=== PATIENT | male | born 1945 | race Caucasian/White ===

== ENCOUNTER 2019-10-07 14:34 | Outpatient (CLI) | payer OTHER, MEDICARE, BC, SELFPAY ==
--- NOTE | 2019-10-07 14:43 | MR_ITS ---
WS: [id number] MRI LEFT SHOULDER NONCONTRAST TECHNIQUE: Sagittal T2, coronal T1, T2 and proton density imaging. Axial gradient PDE imaging. CLINICAL INFORMATION: LEFT ROTATOR CUFF STRAIN COMPARISON: None. FINDINGS: Moderate hypertrophic changes at the AC joint. Mild downsloping of the acromion. Mild subacromial und ersurface spurring. Full-thickness tear involving the supraspinatus with retraction of the supraspina tus. Tendon retraction measures approximately 2.0 cm from the insertion. Infraspinatus is normal. Nor mal teres minor. Tendinopathy with small intrasubstance tear involving the subscapularis tendon distally. Normal bicep s tendon in the bicipital groove. Degenerative fraying of the glenoid labrum. Biceps labral anchor ap pears intact. Suggestion of tiny SLAP tear involving the anterior superior glenoid labrum. Inferior l abrum appears intact. No other significant findings. MR/MR shoulder LT wo con* [id number] IMPRESSION: 1. Full-thickness tear involving the supraspinatus with 2.0 cm of tendon retra ction. 2. Infraspinatus and teres minor appear intact. 3. Tendinopathy with partial intrasubstance tear involving the subscapularis d istally. 4. Normal biceps tendon in the bicipital groove. 5. Suggestion of a tiny SLAP tear. Biceps labral anchor appears intact 6. Small joint effusion.
== END 2019-10-07 14:35 | disposition home or self-care (01) ==
LOC: RADSHAW 14:40
PROVIDERS: Family Provider Family Medicine; PCP Family Medicine; Visit Provider Orthopaedic Surgery
DX: S46.012A Strain of muscle(s) and tendon(s) of the rotator cuff of left shoulder, initial encounter (principal); M75.122 Complete rotator cuff tear or rupture of left shoulder, not specified as traumatic; M25.412 Effusion, left shoulder; X58.XXXA Exposure to other specified factors, initial encounter
CPT/HCPCS: 73221

== ENCOUNTER 2019-11-24 06:14 | Day surgery (SDC) | payer OTHER, SELFPAY ==
[2019-11-23 12:29] VITALS: BMI 28.4
[2019-11-23 13:10] VITALS: BMI 29.9
[2019-11-24] VITALS (8 sets, daily range): BP systolic 134–148; BP diastolic 74–89; PULSE 61–85; RESP 13–21; TEMP 36.2–36.7; O2SAT 95–100
[2019-11-24] MEDS: sodium chloride 0.9% 1,000 ML 30 ML IV (06:03)
--- NOTE | 2019-11-24 06:10 | ANES.PREANE2 ---
Pre-Anesthetic Assessment Pre-Anesthetic Assessment: Height/Weight: Height 1.65 m Weight 81.647 kg Temp Pulse Resp BP Pulse Ox 97.3 F L 61 16 138/87 98 11/24/19 05:38 11/24/19 05:38 11/24/19 05:38 11/24/19 05:38 11/24/19 05:38 Preop Diagnosis: Left rotator cuff tear Proposed Procedure: Operation Date: 11/24/19 07:00 Proposed Procedures p Left Shoulder Arthroscopy w/ Rotator cuff Repair [id number]/M75.40/S46.012A(Left) - Stephan Bejarano MD s Rotator Cuff Repair Subcromial decompression(Left) - Stephan Bejarano MD Familial anesthetic complications: No trouble Was Beta Kev taken within 24 hours: Yes Last intake: Intake Last Liquid Date 11/24/19 Last Liquid Time 04:00 Last Solid Date 11/23/19 Last Solid Time 20:30 Social: Social History: Tobacco Comment: chews Exam: Pre-Anes Outpt Exam: alert, oriented x 3, clear to auscultation bilaterally and regular rate & rhythm Airway: Cervical ROM: WNL MP: 3 Dentition: False Pulmonary: Pulmonary: COPD Comments: had bad sinus infection and took steroids just this month with antibiotics CV/HEM: CV/HEM: HTN : : None reported Hepatic: Hepatic: None reported GI: GI: GERD Metabolic: Metabolic: None reported Musc/skel: Musc/skel: None reported Neuropsych: Neuropsych: None reported Anesthetic Plan: ASA status: 3 Anesthesia: General and Regional (specify below) Other: interscalene Risk of > 500 ml blood loss (7ml/kg in children): No Meds/Allergies Current Medications: Current Medications Generic Name Dose Route Start Last Admin Trade Name Freq PRN Reason Stop Dose Admin Sodium Chloride 1,000 mls @ 30 ml s/hr 11/24/19 05:30 11/24/19 06:03 Sodium Chloride 0.9% IV 11/25/19 05:29 30 mls/hr .Q24H JOANNA Administration Data Anesthesia Cardiac Studies: No Data to Display
[2019-11-24] MEDS: midazolam 1 mg/mL INJ 2 mL 2 MG IVP (06:30)
[2019-11-24 06:49] LABS: Basophils # 0.1 10^3/uL (0.0-0.1); Basophils % 0.8 %; Eosinophils # 0.2 10^3/uL (0.0-0.8); Eosinophils % 2.3 %; Hematocrit 45.6 % (42.0-52.0); Hemoglobin 15.2 g/dL (11.7-16.6); Lymphocytes % 40.7 %; Mean Corpuscular HGB Conc 33.3 g/dL (30.0-36.0); Mean Corpuscular Volume 92.9 fL (80-94); Mean Platelet Volume 10.4 fL (7.4-10.4); Monocytes # 0.9 10^3/uL (0.2-0.9); Monocytes % 12.1 %; Neutrophils # 3.2 10^3/uL (1.8-7.7); Neutrophils % 43.8 %; Nucleated Red Blood Cells % 0 %; Platelet Count 208 10^3/cmm (130-400); Red Blood Count 4.91 10^6/uL (4.1-5.3); Red Cell Distribution Width 11.7 % (12.1-15.1); White Blood Count 7.3 10^3/uL (4.0-10.0)
--- NOTE | 2019-11-24 06:55 | P.HP_ITS ---
Same Day Surgery H&P Indication for Procedure/HPI DATE OF PROCEDURE: November 24, 2019 CHIEF COMPLAINT/INDICATIONFOR SURGICAL PROCEDURE: Left rotator cuff tear after a fall 3 months ago at home. MRI has revealed a traumatic tear. Patient is scheduled for an arthroscopic right rotator cuff repair. He has been previously counseled and agrees to proceed PREOP DIAGNOSIS: Left rotator cuff tear PLANNED PROCEDRUE: Operation Date: 11/24/19 07:00 Proposed Procedures p Left Shoulder Arthroscopy w/ Rotator cuff Repair [id number]/M75.40/S46.012A(Left) - Stephan Bejarano MD s Rotator Cuff Repair Subcromial decompression(Left) - Stephan Bejarano MD Medications/Allergies* Home Medications Medication Instructions Recorded Confirmed Type metoprolol tartrate 25 mg tablet 25 mg PO BID 10/12/19 11/24/19 History pantoprazole 40 mg tablet,delayed 40 mg PO DAILY PRN 10/12/19 11/24/19 History release albuterol sulfate 1 puff INHALATION QID PRN 11/23/19 11/24/19 History budesonide-formoterol [Symbicort] 2 puff INHALATION BID 11/23/19 11/24/19 History calcium carbonate [Calcium 500] 500 mg PO BID 11/23/19 11/24/19 History flaxseed oil 1,000 mg PO BID 11/23/19 11/23/19 History ibuprofen [Advil] 200 mg PO Q6H PRN 11/23/19 11/24/19 History montelukast 10 mg PO QPM 11/23/19 11/24/19 History multivitamin 1 tab PO QAM 11/23/19 11/24/19 History omega 8-rpo-gcy-fish oil [Fish Oil] 1 cap PO DAILY 11/23/19 11/24/19 History Allergies/Adverse Reactions Allergy/AdvReac Type Severity Reaction Status Date / Time simvastatin Allergy Mild Unknown Verified 11/24/19 05:29 Sulfa (Sulfonamide Allergy Mild ADR-Itching Verified 11/24/19 05:29 Antibiotics) Current Medications: Generic Name Dose Route Start Last Admin Trade Name Freq PRN Reason Stop Dose Admin Sodium Chloride 1,000 mls @ 30 mls/hr 11/24/19 05:30 11/24/19 06:03 Sodium Chloride 0.9% IV 11/25/19 05:29 30 mls/hr .Q24H JOANNA Administration Pertinent Exam Findings alert, oriented x 3, clear to auscultation bilaterally and regular rate & rhythm Recommendations Surgery/Procedure today Coding Level of Care Code Acute Social Worker Palliative Care for Shireen Altamirano
--- NOTE | 2019-11-24 06:55 | ANES.PROC ---
Anesthesia Procedures Procedure/Date: 11/24/19 Nerve Block ^: Nerve Block 1: Main Anesthesia: general anesthesia Time Out Performed: Yes Consent: requested by attending/covering physician, from patient, risks and benefits reviewed and patient agrees to proceed Nerve block location: interscalene (L) Anesthesia monitors applied: pulse oximetry, EKG, BP cuff and oxygen Nerve block position: semi sitting Anesthetic Used: ropivicaine 0.5% (30 ml) and with decadron (4 mg) Ultrasound used to: recognize landmarks, visualize and ID brachial plexus and visualize and ID interscalene groove Nerve Stimulator Used?: No Interscalene/Femoral BLK: 2 stimuplex 22 g needle used for position and inplane approach Injection: neg aspiration of heme Patient Tolerated Procedure: well and no complications Complications: none Additional Comments: chloroprep of skin, time out performed
--- NOTE | 2019-11-24 08:50 | P.OP_ITS ---
Operative Report Date of procedure: November 24, 2019 Pre-op Diagnosis: Left rotator cuff tear Post-op diagnosis: same (Left rotator cuff tear, impingement left shoulder) Post-op Findings: The patient had a traumatic tear of the left rotator cuff beginning just posterior to the biceps tendon extending posteriorly approximately 2 cm with 2 cm of retraction. He had a large subacromial spur and degenerative changes acromioclavicular joint which were asymptomatic Procedure Done: Arthroscopic left rotator cuff repair, arthroscopic left subacromial decompression Pathology: none sent Surgeon: Stephan Bejarano Anesthesia: General and Nerve Block (Interscalene) Estimated blood loss (mL): 10 Complications: None Findings: The patient had a traumatic tear of the left rotator cuff beginning just posterior to the biceps tendon extending posteriorly approximately 2 cm with 2 cm of retraction. He had a large subacromial spur and degenerative changes acromioclavicular joint which were asymptomatic Condition: stable Brief History: The patient is a 74-year-old male who sustained a traumatic tear of his left rotator cuff after a fall in August with continued pain and weakness. Procedure: After the patient was given an interscalene block he was taken to the operating room. He was given 2 g of Ancef and prepped and draped in the lateral position with his left arm in 15 pounds of traction. A timeout was performed. The shoulder was entered through a posterior portal and a a camera introduced into the glenohumeral joint. An anterior working portal was made with a scalpel blade. The large rotator cuff tear was identified. The biceps tendon was probed and found to be stable. Small amounts of degenerative tissue were debrided from the superior and anterior labrum but the biceps anchor was probed and found to be healthy. The scope was then moved to the subacromial space and a lateral portal fashion. Working through the lateral portal the leading edge of the acromion was outlined. A 5.5 mm acromionizer was introduced and approximately 4 mm of anterior and inferior acromion removed to make room for the rotator cuff repair. The rotator cuff was then grasped. It seemed to be a retracted tear of the supraspinatus tendon with a longitudinal split through the rotator interval. The biceps tendon was again probed and found to be stable in the bicipital groove. The supraspinatus tendon could be mobilized and brought back to its anatomic footprint. An incisor shaver was used to debride the footprint of the supraspinatus tendon. Through a lateral stab wound a 4.5 mm Garcia and Nephew Helicoil anchor was placed in the posterior medial footprint. A Garcia and Merlin Diamondstrev FirstPass suture passer was used to shuttle 1 limb of Ultratape through the far posterior rotator cuff approximately 8 mm from the edge and the second suture approximately 5 mm anterior to that. A second Garcia [employer] Nephew Helicoil anchor was placed in the anterior medial footprint and the 2 sutures passed in identical fashion. They were secured with a sliding Quiroga knot and half hitch repairing the medial row with 2 bone. 1 Ultratape was grasped from each anchor and passed through a Garcia and Nephew Multifix anchor. The anchor was placed in the posterior lateral footprint and the suture secured. A second Garcia [employer] Nephew Multifix was placed in a anterior lateral position with the remaining 2 suture secured. The sutures through the rotator cuff laterally down to bone. The shoulder was irrigated with saline. Portals were closed with 3-0 Prolene. Sterile dressings were applied. The patient was placed in a sling, extubated, and taken to recovery room in stable condition.
--- NOTE | 2019-11-24 09:08 | SUR.PHASEI ---
0902 pt awake alert talkative sats 96% on ra pt denies pain and nausea, lt shoulder D/I sling in place and first ice to site, distal fingers pink warm, with fast cap refill noted.
== END 2019-11-24 10:20 | disposition home or self-care (01) ==
PROVIDERS: Family Provider Family Medicine; PCP Family Medicine; Visit Provider Orthopaedic Surgery
PROC: (CPT 29805; principal; 2019-11-24 07:00)
PROC: (CPT 29826; 2019-11-24 07:00)
DX: M75.102 Unspecified rotator cuff tear or rupture of left shoulder, not specified as traumatic (principal); M25.812 Other specified joint disorders, left shoulder; J44.9 Chronic obstructive pulmonary disease, unspecified; I10 Essential (primary) hypertension; K21.9 Gastro-esophageal reflux disease without esophagitis; F17.220 Nicotine dependence, chewing tobacco, uncomplicated
CPT/HCPCS: 29826; 29827; 12345; 36415; 85025; 96374; C1713; J0690; J1100; J2001; J2250; J2405; J2704; J2710; J2795; J3010; J3490; J7030

== ENCOUNTER 2022-04-24 20:00 | Outpatient (CLI) | payer OTHER, SELFPAY | END 2022-04-24 20:01 | disposition home or self-care (01) | LOC: SLEEP 04-25 07:29 | PROVIDERS: Family Provider Family Medicine; PCP Family Medicine; Visit Provider Emergency Medicine Emergency Medical Services | DX: R53.83 Other fatigue (principal); R06.83 Snoring | CPT/HCPCS: 95810 ==